=== PATIENT | female | born 1965 | race Caucasian/White ===

== ENCOUNTER 2023-11-03 16:28 | Emergency (ER) | payer BC ==
[~2023-11-03 16:28] MED LIST: Iopamidol 370 76% 100 ML VIAL ONE
[2023-11-03 18:03] LABS: #Eosinphils 0.1 thou/uL (0.0-0.7); #Monocytes 0.4 thou/uL (0.11-0.59); %Basophils 0.5 % (0.0-1.0); %Eosinophils 0.5 % (0.0-10.0); %Lymphocytes 10.1 % (21.0-51.0); %Monocytes 4.4 % (0.0-10.0); %Neutrophils 84.5 % (42.0-75.0); Hematocrit 37.7 % (36.0-47.0); Hemoglobin 12.5 g/dL (12.0-16.0); Mean Corpuscular Volume 96.9 fl (78.0-98.0); Mean Platelet Volume 8.8 fL (7.4-10.4); Platelet Count 250 10x3/uL (130-400); RBC Distribution Width 11.8 % (11.5-14.5); White Blood Cell (WBC) Count 9.5 10x3/uL (4.8-10.8)
[2023-11-03 18:14] LABS: INR-International Normal Ratio 0.9; Prothrombin Time 12.5 sec (12.0-14.7)
[2023-11-03 18:23] LABS: ALT (SGPT) 13 U/L (8-55); AST (SGOT) 15 U/L (5-34); Albumin 3.8 g/dL (3.5-5.0); Alkaline Phosphatase 63 U/L (40-110); Anion Gap 15 mmol/L (10-20); BUN (Urea Nitrogen) 13 mg/dL (9.8-20.1); Bilirubin, Total 0.3 mg/dL (0.2-1.2); Calc. Creatinine Clearance 0 mL/min (70-130); Calcium 8.8 mg/dL (7.8-10.44); Carbon Dioxide 20 mmol/L (22-29); Chloride 107 mmol/L (98-107); Estimated GFR 73; Globulin 2.8 g/dL (2.4-3.5); Glucose 117 mg/dL (70-105); Potassium 3.4 mmol/L (3.5-5.1); Protein, Total 6.6 g/dL (6.0-8.3); Sodium 139 mmol/L (136-145)
[2023-11-03] MEDS ORDERED: Ondansetron PF 4 MG/2 ML Vial ONE (18:37)
[2023-11-03] MEDS ORDERED: Lidocaine 1% (PF) 30 ML VIAL ONE (19:44)
[2023-11-03] MEDS ORDERED: Bacitracin 1 PK ONE (21:33)
[2023-11-03] MEDS ORDERED: Hydrochlorothiazide 25 MG TAB ONE (21:48)
== END 2023-11-03 22:01 | disposition home or self-care (01) ==
LOC: MADERS 16:28
DX: S91.311A Laceration without foreign body, right foot, initial encounter (principal); S06.0X0A Concussion without loss of consciousness, initial encounter; I10 Essential (primary) hypertension; V29.99XA Rider (driver) (passenger) of other motorcycle injured in unspecified traffic accident, initial encounter
CPT/HCPCS: 12002; 70450; 71045; 72125; 74177; 80053; 85025; 85610; 86850; 86900; 86901; 96374; J2001; J2405; Q9967